=== PATIENT | male | born 1955 | race Caucasian/White ===

== ENCOUNTER 2017-11-16 09:58 | Inpatient (IN) | payer OTHER ==
[~2017-11-16] VITALS: Ht 177.8 cm; Wt 99.8 kg
[2017-11-16] MEDS ORDERED: CELECOXIB 200 MG CAPSULE ONE (10:19)
[2017-11-16] MEDS ORDERED: GABAPENTIN 300 MG CAPSULE ONE (10:19)
[2017-11-16] MEDS ORDERED: ACETAMINOPHEN 500 MG TABLET ONE (10:20)
[2017-11-16] MEDS ORDERED: oxyCODONE HCL 10 MG TAB.ER.12H PO ONE ×2 (10:20→10:45)
[2017-11-16] MEDS ORDERED: TRANEXAMIC ACID 650 MG TABLET ONE (10:20)
[2017-11-16] MEDS ORDERED: CEFAZOLIN 2 GM IVPB PREMIX 50 ML IV ONE (10:30)
[2017-11-16] MEDS ORDERED: CELECOXIB 200 MG CAPSULE PO ONE (10:45)
[2017-11-16] MEDS ORDERED: ACETAMINOPHEN 500 MG TABLET PO ONE (10:45)
[2017-11-16] MEDS ORDERED: MUPIROCIN 2% TOPICAL OINTMENT 22 GM TP PRN (10:45)
[2017-11-16] MEDS ORDERED: NACL 0.9% 1,000 ML IV ONE (10:45)
[2017-11-16] MEDS ORDERED: GABAPENTIN 300 MG CAPSULE PO ONE (10:45)
[2017-11-16] MEDS ORDERED: TRANEXAMIC ACID 650 MG TABLET PO ONE (10:45)
[2017-11-16] MEDS ORDERED: METO50TA7 PO (11:50)
[2017-11-16] MEDS ORDERED: DIVA500T2 PO (11:50)
[2017-11-16] MEDS ORDERED: CELE200C PO (11:50)
[2017-11-16] MEDS ORDERED: ROPI0.252 PO (11:50)
[2017-11-16] MEDS ORDERED: OMEP20TA20 PO (11:50)
[2017-11-16] MEDS ORDERED: LEVO25TA7 PO (11:50)
[2017-11-16] MEDS ORDERED: BUPR300T55 PO (11:50)
[2017-11-16] MEDS ORDERED: HYDR25TA4 PO (11:52)
[2017-11-16] MEDS ORDERED: POLYMYXIN 500,000/BACIT.10,000 UNITS in NS IRR 1 L IR ONE (12:46)
[2017-11-16] MEDS ORDERED: LR 1,000 ML IV SCH (14:16)
[2017-11-16] MEDS ORDERED: HYDROmorphone 1 MG INJ. 1 MG/ML AMPUL IVP PRN ×2 (14:30)
[2017-11-16] MEDS ORDERED: METOCLOPRAMIDE HCL 10 MG/2 ML VIAL IVP PRN (14:30)
[2017-11-16] MEDS ORDERED: HYDROmorphone 2 MG/ML VIAL IVP PRN (14:30)
[2017-11-16] MEDS ORDERED: ROPIVACAINE 0.2% 550 ML INJ SCH (15:01)
[2017-11-16] MEDS ORDERED: SENNOSIDES 8.6 MG TABLET PO PRN (15:15)
[2017-11-16] MEDS ORDERED: oxyCODONE HCL 5 MG TABLET PO PRN ×2 (15:15)
[2017-11-16] MEDS ORDERED: MORPHINE SULFATE 10 MG/ML VIAL IVP PRN (15:15)
[2017-11-16] MEDS ORDERED: DIPHENHYDRAMINE HCL 50 MG CAPSULE PO PRN (15:15)
[2017-11-16] MEDS ORDERED: PROMETHAZINE HCL 25 MG/ML AMP IVP PRN (15:15)
[2017-11-16] MEDS ORDERED: KETOROLAC TROMETHAMINE 30 MG VIAL IVP PRN (15:15)
[2017-11-16] MEDS ORDERED: ONDANSETRON HCL 4 MG/2 ML VIAL IVP PRN (15:15)
[2017-11-16] MEDS ORDERED: ROPIVACAINE 0.2% 100 ML INJ SCH (15:38)
[2017-11-16] MEDS ORDERED: HYDROcodone/ACETAMIN 10-325 MG TAB PO PRN ×2 (15:45)
[2017-11-16 17:05] VITALS: BP_SYST 137
[2017-11-16 19:00] VITALS: BP_SYST 110
[2017-11-16] MEDS: CEFAZOLIN 1 GM IVPB PREMIX 50 ML IV SCH (19:01)
[2017-11-16] MEDS: D5LR 1,000 ML IV SCH (19:02)
[2017-11-16 20:00] VITALS: BP_SYST 121
[2017-11-16 21:00] VITALS: BP_SYST 119
[2017-11-16] MEDS: ACETAMINOPHEN 500 MG TABLET PO SCH (21:12)
[2017-11-16] MEDS: CELECOXIB 200 MG CAPSULE PO SCH (21:13)
[2017-11-16] MEDS: GABAPENTIN 300 MG CAPSULE PO SCH (21:30)
[2017-11-16] MEDS: METOPROLOL SUCCINATE 50 MG TAB.SR.24H (TOPROL XL) PO SCH (21:31)
[2017-11-17] MEDS: CEFAZOLIN 1 GM IVPB PREMIX 50 ML IV SCH ×2 (00:32→09:12)
[2017-11-17 01:21] VITALS: BP_SYST 113
[2017-11-17 04:30] VITALS: BP_SYST 107
[2017-11-17] MEDS: D5LR 1,000 ML IV SCH ×2 (06:11→21:54)
[2017-11-17] MEDS: LEVOTHYROXINE SODIUM 0.025 MG TABLET PO SCH (06:11)
[2017-11-17 06:49] LABS: CALCIUM 8.7 mg/dL (8.4-11.0); CREATININE 1.18 mg/dL (0.55-1.30); POTASSIUM 4.3 mmol/L (3.5-5.1)
[2017-11-17 08:11] LABS: BASOPHILS # (AUTO) 0.1 K/uL (0.0-0.2); BASOPHILS % (AUTO) 0.5 % (0.0-2.0); EOSINOPHILS % (AUTO) 0.1 % (0.0-4.0); HEMATOCRIT 40.8 % (36-54); HEMOGLOBIN 14.2 g/dL (14.0-18.0); LYMPHOCYTES # (AUTO) 0.7 K/uL (1.0-5.5); LYMPHOCYTES % (AUTO) 4.8 % (20.5-51.5); MEAN CORPUSCULAR HEMOGLOBIN 33 pg (27-31); MEAN CORPUSCULAR HGB CONC 35 % (32-36); MEAN CORPUSCULAR VOLUME 95 fL (79.0-98.0); MONOCYTES # (AUTO) 0.7 K/uL (0.0-1.0); MONOCYTES % (AUTO) 4.8 % (1.7-9.3); NEUTROPHILS % (AUTO) 89.8 % (40.0-70.0); PLATELET COUNT (AUTO) 211 K/uL (130-430); RED BLOOD CELL COUNT(AUTO) 4.28 MIL/uL (4.2-6.2); RED CELL DISTRIBUTION WIDTH 12.6 % (9.0-15.0); WHITE BLOOD COUNT (AUTO) 15.5 K/uL (4.8-10.8)
[2017-11-17] MEDS: DIVALPROEX SODIUM 500 MG TABLET( DEPAKOTE) PO SCH (09:08)
[2017-11-17] MEDS: METOPROLOL SUCCINATE 50 MG TAB.SR.24H (TOPROL XL) PO SCH ×2 (09:09→21:50)
[2017-11-17] MEDS: roPINIRole HCL 0.25 MG ( REQUIP )TABLET PO SCH (09:10)
[2017-11-17] MEDS: buPROPion HCL 150 MG XL TAB PO SCH (09:10)
[2017-11-17] MEDS: OMEPRAZOLE 20 MG CAPSULE.DR (PriLOSEC) PO SCH (09:10)
[2017-11-17] MEDS: ACETAMINOPHEN 500 MG TABLET PO SCH ×2 (09:11→21:50)
[2017-11-17] MEDS: HYDROCHLOROTHIAZIDE 25 MG TABLET (HCTZ) PO SCH (09:11)
[2017-11-17] MEDS: CELECOXIB 200 MG CAPSULE PO SCH ×2 (09:12→21:51)
[2017-11-17] MEDS: RIVAROXABAN 10 MG TABLET PO SCH (11:15)
[2017-11-17 12:02] VITALS: BP_SYST 114
[2017-11-17 16:13] VITALS: BP_SYST 112
[2017-11-17 17:50] VITALS: BP_SYST 112
[2017-11-17] MEDS: GABAPENTIN 300 MG CAPSULE PO SCH (21:51)
[2017-11-17 23:18] VITALS: BP_SYST 128
[2017-11-18 00:38] VITALS: BP_SYST 129
[2017-11-18 04:22] VITALS: BP_SYST 121
[2017-11-18] MEDS: LEVOTHYROXINE SODIUM 0.025 MG TABLET PO SCH (06:15)
[2017-11-18 07:00] LABS: BASOPHILS % (AUTO) 0.2 % (0.0-2.0); EOSINOPHILS # (AUTO) 0.2 K/uL (0.0-0.4); EOSINOPHILS % (AUTO) 1.6 % (0.0-4.0); HEMATOCRIT 36.1 % (36-54); HEMOGLOBIN 12.5 g/dL (14.0-18.0); LYMPHOCYTES # (AUTO) 1.5 K/uL (1.0-5.5); LYMPHOCYTES % (AUTO) 12.9 % (20.5-51.5); MEAN CORPUSCULAR HEMOGLOBIN 33 pg (27-31); MEAN CORPUSCULAR HGB CONC 35 % (32-36); MEAN CORPUSCULAR VOLUME 96 fL (79.0-98.0); MONOCYTES # (AUTO) 1.1 K/uL (0.0-1.0); MONOCYTES % (AUTO) 9.3 % (1.7-9.3); NEUTROPHILS # (AUTO) 8.8 K/uL (1.8-7.7); PLATELET COUNT (AUTO) 184 K/uL (130-430); RED BLOOD CELL COUNT(AUTO) 3.76 MIL/uL (4.2-6.2); RED CELL DISTRIBUTION WIDTH 13.3 % (9.0-15.0); WHITE BLOOD COUNT (AUTO) 11.6 K/uL (4.8-10.8)
[2017-11-18 07:13] LABS: CALCIUM 9.3 mg/dL (8.4-11.0); CHLORIDE 106 mmol/L (98-107); CREATININE 0.99 mg/dL (0.55-1.30); GLUCOSE 109 mg/dL (70-99); SODIUM SERUM 139 mmol/L (136-145); UREA NITROGEN, BLOOD 17 mg/dL (8-21)
[2017-11-18] MEDS: D5LR 1,000 ML IV SCH (07:31)
[2017-11-18 07:40] LABS: GFR AFRICAN AMERICAN 98 mL/min (>90)
[2017-11-18 07:41] LABS: ANION GAP < 3 (5-15)
[2017-11-18 08:00] VITALS: BP_SYST 126
[2017-11-18] MEDS: METOPROLOL SUCCINATE 50 MG TAB.SR.24H (TOPROL XL) PO SCH (09:16)
[2017-11-18] MEDS: buPROPion HCL 150 MG XL TAB PO SCH (09:16)
[2017-11-18] MEDS: RIVAROXABAN 10 MG TABLET PO SCH (09:17)
[2017-11-18] MEDS: DIVALPROEX SODIUM 500 MG TABLET( DEPAKOTE) PO SCH (09:17)
[2017-11-18] MEDS: CELECOXIB 200 MG CAPSULE PO SCH (09:17)
[2017-11-18] MEDS: HYDROCHLOROTHIAZIDE 25 MG TABLET (HCTZ) PO SCH (09:17)
[2017-11-18] MEDS: roPINIRole HCL 0.25 MG ( REQUIP )TABLET PO SCH (09:17)
[2017-11-18] MEDS: OMEPRAZOLE 20 MG CAPSULE.DR (PriLOSEC) PO SCH (09:18)
[2017-11-18] MEDS: ACETAMINOPHEN 500 MG TABLET PO SCH (09:19)
[2017-11-18 11:03] VITALS: BP_SYST 141
[2017-11-18 11:33] VITALS: BP_SYST 115
[2017-11-18 12:00] VITALS: BP_SYST 141
== END 2017-11-18 12:54 | disposition home health service (06) | DRG 470 ==
LOC: SMU 09:58 → STU 17:12
PROVIDERS: ADMIT Orthopaedic Surgery; ATTEND Orthopaedic Surgery
PROC: 3E0T3BZ Introduction of Anesthetic Agent into Peripheral Nerves and Plexi, Percutaneous Approach (ICD-10-PCS; 2017-11-16)
PROC: 0SRD069 Replacement of Left Knee Joint with Oxidized Zirconium on Polyethylene Synthetic Substitute, Cemented, Open Approach (ICD-10-PCS; principal; 2017-11-16 12:00)
DX: M17.12 Unilateral primary osteoarthritis, left knee (principal); E66.01 Morbid (severe) obesity due to excess calories; E03.9 Hypothyroidism, unspecified; I10 Essential (primary) hypertension; K21.9 Gastro-esophageal reflux disease without esophagitis; F32.9 Major depressive disorder, single episode, unspecified; Z79.899 Other long term (current) drug therapy; Z68.31 Body mass index [BMI] 31.0-31.9, adult
CPT/HCPCS: 36415; 80048; 85025; 87081; 88305; 88311; 94010; 97039; 97110-GP; 97116-GP; 97530-GP; C1713; C1776; J0690; J1885; J2405; J2795; J7030; J7120

== ENCOUNTER 2018-05-24 05:25 | Inpatient (IN) | payer OTHER ==
[~2018-05-24] VITALS: Ht 180.3 cm; Wt 98.4 kg
[~2018-05-24 05:25] MED LIST: BUPR300T55 PO; CELE200C PO; DIVA500T2 PO; HYDR25TA4 PO; LEVO25TA7 PO; METO50TA7 PO; OMEP20TA20 PO; ROPI0.252 PO
[2018-05-24] MEDS ORDERED: ACETAMINOPHEN 500 MG TABLET ONE (06:18)
[2018-05-24] MEDS ORDERED: CELECOXIB 200 MG CAPSULE ONE (06:19)
[2018-05-24] MEDS ORDERED: TRANEXAMIC ACID 650 MG TABLET ONE (06:19)
[2018-05-24] MEDS ORDERED: GABAPENTIN 300 MG CAPSULE ONE (06:19)
[2018-05-24] MEDS ORDERED: oxyCODONE HCL 10 MG TAB.ER.12H PO ONE ×2 (06:20→07:00)
[2018-05-24] MEDS ORDERED: CEFAZOLIN 2 GM IVPB PREMIX 50 ML IV ONE ×2 (06:20→07:00)
[2018-05-24] MEDS ORDERED: CELECOXIB 200 MG CAPSULE PO ONE (07:00)
[2018-05-24] MEDS ORDERED: GABAPENTIN 300 MG CAPSULE PO ONE (07:00)
[2018-05-24] MEDS ORDERED: TRANEXAMIC ACID 650 MG TABLET PO ONE (07:00)
[2018-05-24] MEDS ORDERED: ACETAMINOPHEN 500 MG TABLET PO ONE (07:00)
[2018-05-24] MEDS ORDERED: NACL 0.9% 1,000 ML IV ONE (07:00)
[2018-05-24] MEDS ORDERED: POLYMYXIN 500,000/BACIT.10,000 UNITS in NS IRR 1 L IR ONE (07:02)
[2018-05-24] MEDS ORDERED: ePHEDrine sulfate 50 MG/ML VIAL IVP ONE (07:20)
[2018-05-24] MEDS ORDERED: fentaNYL CITRATE 250 MCG/5 ML AMP IV ONE (07:20)
[2018-05-24] MEDS ORDERED: ROCURONIUM BROMIDE 10 MG/ML (ZEMURON) IV ONE (07:20)
[2018-05-24] MEDS ORDERED: KETOROLAC TROMETHAMINE 30 MG VIAL IVP ONE (07:20)
[2018-05-24] MEDS ORDERED: MORPHINE SULFATE 10MG/10ML PF AMP EP ONE (07:20)
[2018-05-24] MEDS ORDERED: LR 1,000 ML IV.SOLN IV ONE (07:20)
[2018-05-24] MEDS ORDERED: ONDANSETRON HCL 4 MG/2 ML VIAL IVP ONE (07:20)
[2018-05-24] MEDS ORDERED: ROPIVACAINE HCL/PF 5 MG/ML 0.5% 30 ML VIAL INJ ONE (07:20)
[2018-05-24] MEDS ORDERED: PROPOFOL 200MG/ 20ML VIAL (DIPRIVAN) IV ONE (07:20)
[2018-05-24] MEDS ORDERED: fentaNYL CITRATE/PF 100 MCG/2 ML AMP IVP ONE (07:20)
[2018-05-24] MEDS ORDERED: SEVOFLURANE 15 MIN GAS INH ONE (07:20)
[2018-05-24] MEDS ORDERED: VANCOMYCIN HCL 1000 MG/VIAL IV ONE (07:20)
[2018-05-24] MEDS ORDERED: NS 100 ML BAG IV ONE (07:20)
[2018-05-24] MEDS ORDERED: MIDAZOLAM HCL 5 MG/5 ML VIAL IVP ONE (07:20)
[2018-05-24] MEDS ORDERED: LR 1,000 ML IV SCH (08:19)
[2018-05-24] MEDS ORDERED: METOCLOPRAMIDE HCL 10 MG/2 ML VIAL IVP PRN (08:30)
[2018-05-24] MEDS ORDERED: HYDROmorphone 2 MG/ML VIAL IVP PRN (08:30)
[2018-05-24] MEDS ORDERED: HYDROmorphone 1 MG INJ. 1 MG/ML AMPUL IVP PRN ×2 (08:30)
[2018-05-24] MEDS: ROPIVACAINE 0.2% 550 ML INJ SCH (09:40)
[2018-05-24] MEDS ORDERED: PROMETHAZINE HCL 25 MG/ML AMP IVP PRN ×2 (09:45→12:45)
[2018-05-24] MEDS ORDERED: KETOROLAC TROMETHAMINE 15 MG VIAL IVP PRN ×2 (09:45)
[2018-05-24] MEDS ORDERED: MORPHINE 4 MG/ML INJ. SYRINGE IVP PRN (09:45)
[2018-05-24] MEDS ORDERED: DIPHENHYDRAMINE HCL 50 MG CAPSULE PO PRN (09:45)
[2018-05-24] MEDS ORDERED: oxyCODONE HCL 5 MG TABLET PO PRN ×2 (09:45)
[2018-05-24 12:00] VITALS: BP_SYST 126
[2018-05-24] MEDS: D5LR 1,000 ML IV SCH (13:08)
[2018-05-24] MEDS: ONDANSETRON HCL 4 MG/2 ML VIAL IVP PRN (13:53)
[2018-05-24 14:39] VITALS: BP_SYST 133
[2018-05-24] MEDS ORDERED: RIVAROXABAN 10 MG TABLET PO ONE (15:00)
[2018-05-24] MEDS: CEFAZOLIN 1 GM IVPB PREMIX 50 ML IV SCH ×2 (15:02→21:09)
[2018-05-24] MEDS: ACETAMINOPHEN 500 MG TABLET PO SCH ×2 (15:03→20:46)
[2018-05-24 16:48] VITALS: BP_SYST 135
[2018-05-24] MEDS: MECLIZINE HCL 25 MG TABLET (ANITVERT) PO PRN (17:36)
[2018-05-24 20:00] VITALS: BP_SYST 120
[2018-05-24] MEDS: GABAPENTIN 300 MG CAPSULE PO SCH (20:46)
[2018-05-24] MEDS: CELECOXIB 200 MG CAPSULE PO SCH (20:46)
[2018-05-24] MEDS: METOPROLOL SUCCINATE 50 MG TAB.SR.24H (TOPROL XL) PO SCH (20:47)
[2018-05-24] MEDS ORDERED: SENNOSIDES 8.6 MG TABLET PO PRN (21:00)
[2018-05-25] MEDS: D5LR 1,000 ML IV SCH ×3 (00:06→14:49)
[2018-05-25 00:20] VITALS: BP_SYST 114
[2018-05-25] MEDS: CEFAZOLIN 1 GM IVPB PREMIX 50 ML IV SCH (06:15)
[2018-05-25] MEDS: LEVOTHYROXINE SODIUM 0.025 MG TABLET PO SCH (06:15)
[2018-05-25 07:13] LABS: CALCIUM 8.4 mg/dL (8.4-11.0); CREATININE 1.26 mg/dL (0.55-1.30); POTASSIUM 3.9 mmol/L (3.5-5.1)
[2018-05-25 07:28] LABS: BASOPHILS # (AUTO) 0.1 K/uL (0.0-0.2); HEMOGLOBIN 14.1 g/dL (14.0-18.0); LYMPHOCYTES # (AUTO) 1.5 K/uL (1.0-5.5); LYMPHOCYTES % (AUTO) 11.1 % (20.5-51.5); MEAN CORPUSCULAR HGB CONC 35 % (32-36); MONOCYTES # (AUTO) 1.3 K/uL (0.0-1.0); MONOCYTES % (AUTO) 9.8 % (1.7-9.3); NEUTROPHILS % (AUTO) 78.4 % (40.0-70.0)
[2018-05-25 07:30] LABS: BASOPHILS % (AUTO) 0.4 % (0.0-2.0); EOSINOPHILS % (AUTO) 0.3 % (0.0-4.0); HEMATOCRIT 39.9 % (36-54); MEAN CORPUSCULAR HEMOGLOBIN 34 pg (27-31); MEAN CORPUSCULAR VOLUME 96 fL (79.0-98.0); NEUTROPHILS # (AUTO) 10.6 K/uL (1.8-7.7); PLATELET COUNT (AUTO) 193 K/uL (130-430); RED BLOOD CELL COUNT(AUTO) 4.14 MIL/uL (4.2-6.2); WHITE BLOOD COUNT (AUTO) 13.5 K/uL (4.8-10.8)
[2018-05-25 08:04] VITALS: BP_SYST 112
[2018-05-25] MEDS: ONDANSETRON HCL 4 MG/2 ML VIAL IVP PRN (08:52)
[2018-05-25] MEDS: ACETAMINOPHEN 500 MG TABLET PO SCH ×3 (09:30→20:49)
[2018-05-25] MEDS: RIVAROXABAN 10 MG TABLET PO SCH (09:30)
[2018-05-25] MEDS: CELECOXIB 200 MG CAPSULE PO SCH ×2 (09:31→20:49)
[2018-05-25] MEDS: MECLIZINE HCL 25 MG TABLET (ANITVERT) PO PRN (09:31)
[2018-05-25] MEDS: DIVALPROEX SODIUM 500 MG TABLET( DEPAKOTE) PO SCH (09:31)
[2018-05-25] MEDS: PANTOPRAZOLE SODIUM 40 MG TAB PO SCH (09:31)
[2018-05-25] MEDS: roPINIRole HCL 0.25 MG ( REQUIP )TABLET PO SCH (09:31)
[2018-05-25] MEDS: buPROPion HCL 150 MG XL TAB PO SCH (09:31)
[2018-05-25] MEDS: METOPROLOL SUCCINATE 50 MG TAB.SR.24H (TOPROL XL) PO SCH ×2 (09:32→20:50)
[2018-05-25] MEDS: HYDROCHLOROTHIAZIDE 25 MG TABLET (HCTZ) PO SCH (09:32)
[2018-05-25] MEDS: ROPIVACAINE 0.2% 550 ML INJ SCH (09:33)
[2018-05-25 11:57] VITALS: BP_SYST 115
[2018-05-25 16:12] VITALS: BP_SYST 122
[2018-05-25 20:00] VITALS: BP_SYST 130
[2018-05-25] MEDS: GABAPENTIN 300 MG CAPSULE PO SCH (20:49)
[2018-05-26 00:22] VITALS: BP_SYST 120
[2018-05-26] MEDS: D5LR 1,000 ML IV SCH ×2 (01:40→12:39)
[2018-05-26 06:31] LABS: BASOPHILS % (AUTO) 0.5 % (0.0-2.0); EOSINOPHILS # (AUTO) 0.4 K/uL (0.0-0.4); EOSINOPHILS % (AUTO) 3.8 % (0.0-4.0); HEMOGLOBIN 12.9 g/dL (14.0-18.0); LYMPHOCYTES # (AUTO) 1.4 K/uL (1.0-5.5); MEAN CORPUSCULAR HGB CONC 35 % (32-36)
[2018-05-26] MEDS: LEVOTHYROXINE SODIUM 0.025 MG TABLET PO SCH (06:31)
[2018-05-26 06:41] LABS: HEMATOCRIT 37.5 % (36-54); LYMPHOCYTES % (AUTO) 14.2 % (20.5-51.5); MEAN CORPUSCULAR HEMOGLOBIN 33 pg (27-31); MEAN CORPUSCULAR VOLUME 97 fL (79.0-98.0); MONOCYTES # (AUTO) 1.3 K/uL (0.0-1.0); MONOCYTES % (AUTO) 13.1 % (1.7-9.3); NEUTROPHILS # (AUTO) 6.8 K/uL (1.8-7.7); NEUTROPHILS % (AUTO) 68.4 % (40.0-70.0); PLATELET COUNT (AUTO) 180 K/uL (130-430); RED BLOOD CELL COUNT(AUTO) 3.87 MIL/uL (4.2-6.2); RED CELL DISTRIBUTION WIDTH 13.4 % (9.0-15.0); WHITE BLOOD COUNT (AUTO) 9.9 K/uL (4.8-10.8)
[2018-05-26 06:42] LABS: CALCIUM 8.8 mg/dL (8.4-11.0); CREATININE 1.29 mg/dL (0.55-1.30)
[2018-05-26 08:45] VITALS: BP_SYST 149
[2018-05-26] MEDS: CELECOXIB 200 MG CAPSULE PO SCH (09:05)
[2018-05-26] MEDS: roPINIRole HCL 0.25 MG ( REQUIP )TABLET PO SCH (09:06)
[2018-05-26] MEDS: DIVALPROEX SODIUM 500 MG TABLET( DEPAKOTE) PO SCH (09:06)
[2018-05-26] MEDS: ACETAMINOPHEN 500 MG TABLET PO SCH (09:06)
[2018-05-26] MEDS: buPROPion HCL 150 MG XL TAB PO SCH (09:07)
[2018-05-26] MEDS: HYDROCHLOROTHIAZIDE 25 MG TABLET (HCTZ) PO SCH (09:07)
[2018-05-26] MEDS: PANTOPRAZOLE SODIUM 40 MG TAB PO SCH (09:07)
[2018-05-26] MEDS: METOPROLOL SUCCINATE 50 MG TAB.SR.24H (TOPROL XL) PO SCH (09:07)
[2018-05-26] MEDS: ROPIVACAINE 0.2% 550 ML INJ SCH (09:08)
[2018-05-26] MEDS: RIVAROXABAN 10 MG TABLET PO SCH (09:09)
[2018-05-26] MEDS: ONDANSETRON HCL 4 MG/2 ML VIAL IVP PRN (09:10)
[2018-05-26 12:13] VITALS: BP_SYST 124
[2018-05-26 12:53] VITALS: BP_SYST 124
== END 2018-05-26 14:10 | disposition home health service (06) | DRG 470 ==
LOC: SMU 05:25 → STU 12:27 → SMU 05-25 18:04
PROVIDERS: ADMIT Orthopaedic Surgery; ATTEND Orthopaedic Surgery
PROC: 0SRC0J9 Replacement of Right Knee Joint with Synthetic Substitute, Cemented, Open Approach (ICD-10-PCS; principal; 2018-05-24 07:30)
DX: M17.0 Bilateral primary osteoarthritis of knee (principal); Z96.652 Presence of left artificial knee joint; I10 Essential (primary) hypertension; Z88.6 Allergy status to analgesic agent; Z79.1 Long term (current) use of non-steroidal anti-inflammatories (NSAID)
CPT/HCPCS: 36415; 80048; 85025; 87081; 88305; 88311; 97039; 97110-GP; 97116-GP; 97530-GP; C1713; C1776; J0690; J1885; J2250; J2270; J2274; J2405; J2550; J2704; J2795; J3010; J3370; J7120; J8597